=== PATIENT | male | born 1940 | race Caucasian/White ===

== ENCOUNTER 2020-12-09 08:29 | Inpatient (IN) | payer MEDICARE, BC ==
[2020-12-16] VITALS (10 sets, daily range): BP systolic 103–132; BP diastolic 53–68; PULSE 45–79; TEMP 97.7–979
[2020-12-16] MEDS ORDERED: COUMADIN 6MG6 MG/TAB PO ×2 (11:32)
[2020-12-16] MEDS ORDERED: BETAPACE 120MG120 MG PO (11:32)
[2020-12-16] MEDS ORDERED: NORVASC 10MG10 MG PO (11:33)
[2020-12-16] MEDS ORDERED: LIPITOR 10MG10 MG PO (11:34)
[2020-12-16] MEDS ORDERED: BENICAR40 MG PO (11:34)
--- NOTE | 2020-12-16 19:13 | NUR ---
Patient post op to unit at 1845. On initial VS, oximeter 88%RA. Oxygen 2l/nc applied, O2 increased to 98%. Lungs CTA. Respers even and unlabored. Abdomen soft, tender. Lap sites x4 with edges well approximated. Low transverse incision with island dressing, shadow drainage noted. Cruz catheter in place, patent, draining clear yellow urine. ERAS protocol reviewed with spouse. No c/o at this time.
--- NOTE | 2020-12-16 20:05 | NUR ---
PT HAD SMALL AMT OF EMESIS, ZOFRAN 4MG GIVEN SLOW IVP
[2020-12-17 04:09] VITALS: BP 134/73; PULSE 69; TEMP 97.9
--- NOTE | 2020-12-17 07:00 | NUR ---
Report received from MELISSA Spear. Patient is resting in bed. Call light and bedside table are within reach. Will continue to monitor patient throughout shift.
[2020-12-17 07:11] VITALS: BP 129/52; PULSE 69; TEMP 97.5
[2020-12-17 07:11] LABS: HEMOGLOBIN 10.9 g/dl (13.5-18.0); MEAN CELL VOLUME 82 fl (80.0-100.0); MEAN CORPUSCULAR HEMOGLOBIN 26 pg (27.0-31.0); MEAN CORPUSCULAR HGB CONC 32 g/dl (33.0-37.0); MEAN PLATELET VOLUME 11.9 fl (7.4-10.4); PLATELET COUNT 174 K/mm3 (130-400); RED BLOOD COUNT 4.17 M/mm3 (4.20-5.60); REDCELL DISTRIBUTION WIDTH-CV 13.1 % (11.5-14.5)
[2020-12-17 07:15] LABS: HEMATOCRIT 34.2 % (42.0-52.0)
[2020-12-17 07:27] LABS: CALCIUM 9.1 mg/dL (8.4-10.2); CREATININE, serum 0.87 mg/dL (0.72-1.25); POTASSIUM 4.5 mmol/L (3.5-4.5)
[2020-12-17 07:48] LABS: LYMPHOCYTE 3 % (20.0-51.0); NEUTROPHILS 96 % (42.0-75.2)
[2020-12-17 07:50] LABS: HYPOCHROMIA 2+; PLATELET ESTIMATE NORMAL (NORMAL)
--- NOTE | 2020-12-17 08:45 | NUR ---
Patient refused to take Cozaar/Hydrodiuril this a.m. Patient stated he takes this medication at night. This nurse assured him provider is aware of his medications and how they are being taken he still refused. This nurse told him she would contact the provider and request the medication be changed from a.m. to pm.
--- NOTE | 2020-12-17 10:10 | NUR ---
This nurse removed patient's Cruz and patient tolerated it well. Patient, his , and myself walked in the corridor. Patient walked approximately 300 feet. Patient denied dizziness and lightheadedness. Patient stated he had very little pain while walking. Patient is currently in recliner. Call light and bedside table are within reach.
[2020-12-17 11:22] VITALS: BP 128/62; PULSE 66; TEMP 97.6
--- NOTE | 2020-12-17 13:29 | NUR ---
This nurse contacted Dr. Moreau to get a medication change for the patient. Message went to [facility]. Patient is requesting to have one of his medication (Cozaar/Hydrodiuril changed from the a.m. to p.m. Patient is adamant about the change and refused to take the medication this a.m.
--- NOTE | 2020-12-17 14:16 | NUR ---
Plan is to return home with Philip in [employer]. Patient reports that his PCP is Dr. Modi and Dr. Barajas. Patient reports that he uses [facility] for medications but does not have any concerns. Patient indicated that he is recieving good care. Patient rpeorts that he has transportation and is fairly independent. Educated on services through case management. No DME reported in use. Will follow for care.
[2020-12-17 15:13] VITALS: BP 135/65; PULSE 58; TEMP 97.6
[2020-12-17 20:44] VITALS: BP 129/61; PULSE 52; TEMP 97.9
--- NOTE | 2020-12-17 21:30 | NUR ---
PT IN BED. IVF CAPPED, HAS GOOD ORAL INTAKE. SL TO RT HAND FLUSHES WELL. IS ALERT AND ORIENTED X4. TAKES HS MEDS WITHOUT PROBLEM. HAS BANDAIDS X4 TO ABD AND LOW TRANSVERSE INCISION WITH DRY ISLAND DRSG INTACT. VOIDING WITHOUT PROBLEM SINCE GARCIA REMOVED TODAY. PASSING GAS. WALKING IN HALLWAYS WITH . DENIES NEED FOR PAIN MEDS AT THIS TIME.
[2020-12-18 00:58] VITALS: BP 113/57; PULSE 53; TEMP 97.7
[2020-12-18 04:04] VITALS: BP 136/54; PULSE 50; TEMP 97.5
--- NOTE | 2020-12-18 06:45 | NUR ---
TAKES SCHEDULED TYLENOL. REPORTS HAVING STOOLS AND VOIDING WELL.
--- NOTE | 2020-12-18 07:00 | NUR ---
Report received from MELISSA Heart. Patient is resting in bed. Call light and bedside table are within reach. Will continue to monitor patient throughout shift.
[2020-12-18 08:05] VITALS: BP 133/65; PULSE 53; TEMP 97.7
[2020-12-18] MEDS ORDERED: TYLENOL 500MG500 MG PO (11:11)
[2020-12-18] MEDS ORDERED: ROXICODONE 55 MG/TAB PO (11:13)
--- NOTE | 2020-12-18 12:49 | NUR ---
Patient is at bedside and has packed patient's personal belongings to include cell phone and chain mender. Paperwork has been reviewed, signed and patient denies questions at this time. Patient was escorted by MELISSA Olivarez to car in a and seatbelted for ride home.
== END 2020-12-18 12:40 | disposition home or self-care (01) | DRG 822 ==
LOC: INPTSU 12-16 11:01 → SURG 12-16 13:30
PROVIDERS: ADMIT Surgery
PROC: 0DB80ZZ Excision of Small Intestine, Open Approach (ICD-10-PCS; principal; 2020-12-17)
PROC: 8E0W0CZ Robotic Assisted Procedure of Trunk Region, Open Approach (ICD-10-PCS; 2020-12-17)
DX: C82.59 Diffuse follicle center lymphoma, extranodal and solid organ sites (principal); E66.9 Obesity, unspecified; E78.5 Hyperlipidemia, unspecified; I48.91 Unspecified atrial fibrillation; M19.90 Unspecified osteoarthritis, unspecified site; I10 Essential (primary) hypertension; E11.9 Type 2 diabetes mellitus without complications
CPT/HCPCS: A4314; J0690; J1100; J1170; J1650; J1815; J2250; J2405; J2704; J2795; J3010; J7120

== ENCOUNTER 2021-06-13 09:18 | Outpatient (RCR) | payer MEDICARE, BC, OTHER ==
[2021-06-13] VITALS (9 sets, daily range): BP systolic 100–121; BP diastolic 57–69; PULSE 61–88; TEMP 97.9–99.4
[~2021-06-13 09:18] MED LIST: BENICAR40 MG PO; BETAPACE 120MG120 MG PO; COUMADIN 6MG6 MG/TAB PO; LIPITOR 10MG10 MG PO; NORVASC 10MG10 MG PO; ROXICODONE 55 MG/TAB PO; TYLENOL 500MG500 MG PO
[2021-06-13] MEDS ORDERED: TRADJENTA5 MG PO (11:59)
[2021-06-13] MEDS ORDERED: TRULICITY3 MG/0.5 M SQ (12:00)
[2021-06-13] MEDS ORDERED: ISONIAZID300 MG PO (12:01)
[2021-06-13] MEDS ORDERED: AMARYL4 MG PO (12:02)
== END 2021-06-13 20:06 | disposition home or self-care (01) ==
LOC: EUO 09:18
DX: C83.39 Diffuse large B-cell lymphoma, extranodal and solid organ sites (principal); D64.9 Anemia, unspecified
CPT/HCPCS: J7050; P9016

== ENCOUNTER 2021-07-06 11:33 | Inpatient (IN) | payer MEDICARE, BC ==
[~2021-07-06] VITALS: Ht 182.9 cm; Wt 92.2 kg
[2021-07-06] VITALS (455 sets, daily range): BP systolic 98–107; BP diastolic 61–71; PULSE 65–109; TEMP 96.2–98.3; O2SAT 90–100
[~2021-07-06 11:33] MED LIST changes: +AMARYL4 MG PO; +ISONIAZID300 MG PO; +TRADJENTA5 MG PO; +TRULICITY3 MG/0.5 M SQ
[2021-07-06 12:16] LABS: MEAN CELL VOLUME 87 fl (80.0-100.0); MEAN CORPUSCULAR HGB CONC 32 g/dl (33.0-37.0); MEAN PLATELET VOLUME 11.3 fl (7.4-10.4); PLATELET COUNT 228 K/mm3 (130-400); RED BLOOD COUNT 3.13 M/mm3 (4.20-5.60); REDCELL DISTRIBUTION WIDTH-CV 16.7 % (11.5-14.5)
[2021-07-06 12:28] LABS: HEMATOCRIT 27.2 % (42.0-52.0); HEMOGLOBIN 8.6 g/dl (13.5-18.0); MEAN CORPUSCULAR HEMOGLOBIN 27 pg (27-31)
[2021-07-06 12:32] LABS: ALBUMIN 2.4 gm/dL (3.4-4.8); BILIRUBIN,TOTAL 1.1 mg/dL (0.2-1.2); CALCIUM 8.4 mg/dL (8.4-10.2); CREATININE, serum 1.11 mg/dL (0.72-1.25); POTASSIUM 4.6 mmol/L (3.5-4.5); TOTAL PROTEIN 5.6 gm/dL (6.2-8.1)
[2021-07-06 13:08] LABS: ANISOCYTOSIS 1+; BAND 4 % (0-10); HYPOCHROMIA 2+; LYMPHOCYTE 3 % (20.0-51.0); NEUTROPHILS 86 % (42.0-75.2); PLATELET ESTIMATE NORMAL (NORMAL)
--- NOTE | 2021-07-06 13:09 | NUR ---
1113 - PT arrived by wheelchair to [facility] for blood transfusion. pt with dusky skin color and increased resp rate and work of breathing. states pt has been more sob over past few days, but the increased wob and inability to recover started last night. VS were measured. bp 95/81, hr 159, rr 40, o2sat 72% on room air, oral temp of 97.6. I called Jayda TORRES at [facility] to report pt's condition to Dr. Schwartz, and to report that pt would be transferred to ER for care. Pt to rm 8 via wheelchair after reporting to Sharon TORRES in ER. Pt accompanied by .
[2021-07-06 14:20] LABS: INR 1.8 (0.8-3.0); PROTHROMBIN TIME 19.8 SECONDS (9.7-12.8)
[2021-07-06 14:27] LABS: ARTERIAL BLD GAS TCO2 CT 16.7; ARTERIAL BLOOD GAS BASE EXCESS -7.5 (-2-2); ARTERIAL BLOOD GAS HCO3 15.9 meq/L (22-26); ARTERIAL BLOOD GAS PCO2 24.4 mmHg (35-45); ARTERIAL BLOOD GAS PO2 67.5 mmHg (80-100); ARTERIAL BLOOD GAS pH 7.43 (7.35-7.45)
--- NOTE | 2021-07-06 15:00 | NUR ---
Initial visit; Patient in ICU, Braider Setter sat with his Yobani offering comnfort and Spiritual Care.
[2021-07-06 16:38] LABS: ARTERIAL BLD GAS O2 SATURATION 93.7 % (92-100); ARTERIAL BLD GAS TCO2 CT 17.6; ARTERIAL BLOOD GAS BASE EXCESS -7.3 (-2-2); ARTERIAL BLOOD GAS HCO3 16.7 meq/L (22-26); ARTERIAL BLOOD GAS PCO2 28.1 mmHg (35-45); ARTERIAL BLOOD GAS PO2 75.3 mmHg (80-100); ARTERIAL BLOOD GAS pH 7.39 (7.35-7.45)
--- NOTE | 2021-07-06 17:36 | NUR ---
Sedation vacation not performed as patient was just intubated and sedated this afternoon.
--- NOTE | 2021-07-06 19:16 | NUR ---
PT WAS INTUBATED WITH AN 8.0 ET WITH COLOR CHANGE, BILATERAL BREATH SOUNDS, CHEST RISE AND CONDENSATION IN THE TUBE. TUBE WAS SECURED WITH COMMERCIAL TUBE CAMPOS AT 25 AT THE LIP. CUFF INFLATED.
--- NOTE | 2021-07-06 19:51 | NUR ---
RN AND FAMILY X 1 AT BEDSIDE. SPUTUM SAMPLE AND ABG COLLECTED AND SENT TO LAB.
--- NOTE | 2021-07-06 19:54 | NUR ---
PATIENT'S BELONGINGS SENT HOME WITH , THRES, INCLUDING WALLET, WATCH, AND HOUSE LEWIS. PATIENT'S PANTS, SHOES, UNDERWEAR AND SOCKS ARE IN THE PATIENT'S ROOM.
[2021-07-06 20:15] LABS: ARTERIAL BLD GAS O2 SATURATION 97.4 % (92-100); ARTERIAL BLD GAS TCO2 CT 20.7; ARTERIAL BLOOD GAS BASE EXCESS -5.3 (-2-2); ARTERIAL BLOOD GAS HCO3 19.6 meq/L (22-26); ARTERIAL BLOOD GAS PCO2 35.2 mmHg (35-45); ARTERIAL BLOOD GAS PO2 104.4 mmHg (80-100); ARTERIAL BLOOD GAS pH 7.36 (7.35-7.45)
[2021-07-06 20:36] LABS: COLLECTION METHOD CLEAN CATCH
[2021-07-06 20:47] LABS: MUCOUS Present (NOT PRESENT); PH 5 (5-8); SQUAMOUS EPITHELIAL 0-2 /hpf (0-10); URINE APPEARANCE Hazy (CLEAR/HAZY); URINE BACTERIA Rare /hpf (NONE SEEN); URINE BILIRUBIN Negative (NEGATIVE); URINE BLOOD 3+ (NEGATIVE); URINE COLOR Yellow (YELLOW); URINE GLUCOSE 1+ (NEGATIVE); URINE KETONE Negative (NEGATIVE); URINE LEUKOCYTE ESTERASE Negative (NEGATIVE); URINE NITRATE Negative (NEGATIVE); URINE PROTEIN(semi-quant) Negative (NEGATIVE); URINE RBC 20-50 /hpf (0-2); URINE UROBILINOGEN Negative (NEGATIVE)
--- NOTE | 2021-07-06 21:13 | NUR ---
Assessment complete and charted. Patient pupils are pinpoint at this time. Sedation was decreased to aide with neuro status. Will preform sedation vacation at 0500. Patient started on insulin gtt per additional nursing orders from Dr. Rivas. remained at beside til 1999.
[2021-07-07] VITALS (1375 sets, daily range): BP systolic 79–121; BP diastolic 51–73; PULSE 62–92; TEMP 95.4–97.9; O2SAT 87–100
--- NOTE | 2021-07-07 01:51 | NUR ---
RN STATED ORAL CARE WAS ALREADY DONE AT 0100. TX GIVEN INLINE WITH VENT AND TOLERATED WELL.
[2021-07-07 04:30] LABS: ARTERIAL BLOOD GAS BASE EXCESS -5.4 (-2-2); ARTERIAL BLOOD GAS HCO3 19.8 meq/L (22-26); ARTERIAL BLOOD GAS PCO2 37.7 mmHg (35-45); ARTERIAL BLOOD GAS PO2 91.2 mmHg (80-100); ARTERIAL BLOOD GAS pH 7.34 (7.35-7.45)
[2021-07-07 04:37] LABS: MEAN CELL VOLUME 87 fl (80.0-100.0); MEAN CORPUSCULAR HGB CONC 33 g/dl (33.0-37.0); MEAN PLATELET VOLUME 11.4 fl (7.4-10.4); PLATELET COUNT 200 K/mm3 (130-400); RED BLOOD COUNT 2.47 M/mm3 (4.20-5.60); REDCELL DISTRIBUTION WIDTH-CV 16.3 % (11.5-14.5)
[2021-07-07 04:45] LABS: CALCIUM 8.1 mg/dL (8.4-10.2); CREATININE, serum 0.82 mg/dL (0.72-1.25); MAGNESIUM 1.9 mg/dL (1.6-2.6); POTASSIUM 3.9 mmol/L (3.5-4.5)
[2021-07-07 04:48] LABS: HEMATOCRIT 21.5 % (42.0-52.0); MEAN CORPUSCULAR HEMOGLOBIN 28 pg (27-31)
[2021-07-07 05:07] LABS: INR 2.7 (0.8-3.0); PROTHROMBIN TIME 30.2 SECONDS (9.7-12.8)
[2021-07-07 05:39] LABS: BAND 4 % (0-10); LYMPHOCYTE 1 % (20.0-51.0); MYELOCYTE 1 % (0-0); NEUTROPHILS 93 % (42.0-75.2); PLATELET ESTIMATE NORMAL (NORMAL)
[2021-07-07 05:40] LABS: ANISOCYTOSIS 1+; HYPOCHROMIA 1+
--- NOTE | 2021-07-07 06:36 | NUR ---
Patient had warming blanket on since 509 per Carine CURRICULUM DIRECTOR. Patient temps remains 35 degrees with blanket.
--- NOTE | 2021-07-07 07:00 | NUR ---
Received report from Margarita TORRES. vent settings: AC, TV 500, PEEP 8, RR 20, 50%. ETT 25 at teeth. OGT 51 cm to LIS. FC patent draining to gravity. WEBSPHERE ARCHITECT in place. see gtt flowsheet.
--- NOTE | 2021-07-07 07:09 | NUR ---
Report given to MELISSA Hyatt
--- NOTE | 2021-07-07 10:48 | NUR ---
The patient is intubated and on the vent. BRANDIE met with the patient's , Ozzy Rebolledo", to discuss discharge plan. The patient lives in [place] with his . Avery states that the patient was independent with ADLs prior to hospitalization and does not have any DME. The patient's PCP is Dr. Kevin Modi and he receives his medications from [facility]. Avery states that the patient does not have a DPOA-HC. Avery is hopeful that the patient will be independent and able to go home from the hospital. She states that he has been on chemo infusions and his last dose was suppose to be next Saturday. The patient remains on the vent. BRANDIE to continue to follow. *Discharge plan: Undetermined at this time*
[2021-07-07 10:59] LABS: ARTERIAL BLD GAS O2 SATURATION 97.9 % (92-100); ARTERIAL BLD GAS TCO2 CT 20.4; ARTERIAL BLOOD GAS BASE EXCESS -4.3 (-2-2); ARTERIAL BLOOD GAS HCO3 19.5 meq/L (22-26); ARTERIAL BLOOD GAS PCO2 29.6 mmHg (35-45); ARTERIAL BLOOD GAS PO2 101.8 mmHg (80-100); ARTERIAL BLOOD GAS pH 7.44 (7.35-7.45)
--- NOTE | 2021-07-07 15:14 | NUR ---
TF INITIATED AT 15ML/HR PER ORDERS.
--- NOTE | 2021-07-07 17:08 | NUR ---
PT OPENS EYES WHEN HE HEARS HIS SPEAKING TO HIM. NOTED PT TO PULL AGAINST BILATERAL RESTRAINTS AND MOVE BLE. VSS.
[2021-07-08] VITALS (1048 sets, daily range): BP systolic 87–117; BP diastolic 59–89; PULSE 80–110; TEMP 97.6–98.6; O2SAT 85–100
--- NOTE | 2021-07-08 02:00 | NUR ---
HEPARIN XA RESULT OF 0.45 PER PROTOCOL NO CHANGE TO DRIP RATE, NEXT XA LEVEL IN 6 HOURS
[2021-07-08 04:44] LABS: ARTERIAL BLD GAS TCO2 CT 21.3; ARTERIAL BLOOD GAS BASE EXCESS -3.2 (-2-2); ARTERIAL BLOOD GAS HCO3 20.3 meq/L (22-26); ARTERIAL BLOOD GAS PCO2 30.6 mmHg (35-45); ARTERIAL BLOOD GAS PO2 110.1 mmHg (80-100); ARTERIAL BLOOD GAS pH 7.44 (7.35-7.45)
--- NOTE | 2021-07-08 05:00 | NUR ---
PATIENT ABLE TO FOLLOW COMMANDS AND RESPOND TO VERBAL STIMULI, EXPLAINED PROCESS OF REDUCING SEDATING MEDICATIONS WITH GOAL TO BE ABLE TO REMOVE ETT.
[2021-07-08 05:57] LABS: MEAN CELL VOLUME 88 fl (80.0-100.0); MEAN CORPUSCULAR HGB CONC 31 g/dl (33.0-37.0); MEAN PLATELET VOLUME 10.9 fl (7.4-10.4); PLATELET COUNT 174 K/mm3 (130-400); RED BLOOD COUNT 2.78 M/mm3 (4.20-5.60); REDCELL DISTRIBUTION WIDTH-CV 16.6 % (11.5-14.5)
[2021-07-08 06:13] LABS: CALCIUM 8.4 mg/dL (8.4-10.2); CREATININE, serum 1.16 mg/dL (0.72-1.25); MAGNESIUM 2.2 mg/dL (1.6-2.6); POTASSIUM 4.3 mmol/L (3.5-4.5)
[2021-07-08 06:17] LABS: HEMATOCRIT 24.5 % (42.0-52.0); HEMOGLOBIN 7.7 g/dl (13.5-18.0); MEAN CORPUSCULAR HEMOGLOBIN 28 pg (27-31)
--- NOTE | 2021-07-08 07:00 | NUR ---
RECEIVED REPORT FROM MELISSA MEJÍA. PT RESTING ON SPONTANEOUS TRIAL ON VENT OF 30% PEEP, 7, PS 6. VSS. CONFERENCE SERVICES DIRECTOR IN PLACE. FC PATENT AND DRAINING TO GRAVITY. SEE IV GTT FLOWSHEET.
[2021-07-08 07:33] LABS: ANISOCYTOSIS 1+; BAND 8 % (0-10); HYPOCHROMIA 1+; LYMPHOCYTE 3 % (20.0-51.0); NEUTROPHILS 87 % (42.0-75.2); PLATELET ESTIMATE NORMAL (NORMAL)
[2021-07-08 07:35] LABS: TEAR DROP CELLS 1+
--- NOTE | 2021-07-08 08:06 | NUR ---
DR MONIQUE AT BEDSIDE FOR ASSESSMENT. PROVIDER REQUESTS TO CUT PROPOFOL IN HALF NOW THEN TURN OFF FENT AND PROPOFOL IV GTTs ABOUT 20 MINS BEFORE WE DECIDE TO EXTUBATE THIS MORNING AND BE SURE THAT PT IS FULLY AWAKE BEFORE EXTUBATING. RT MADE AWARE AND WILL MAKE A PLAN WITH RN. PT'S AT BEDSIDE AND MADE AWARE OF POC BY DR MONIQUE, VERBALIZED UNDERSTANDING.
--- NOTE | 2021-07-08 08:46 | NUR ---
PT AROUSING EASILY AT THIS TIME AND PULLING AT THE BEARHUGGER. PT NODS HEAD YES WHEN ASKED IF HE IS TOO HOT. BEAR HUGGER OFF AT THIS TIME.
--- NOTE | 2021-07-08 12:18 | NUR ---
PT EXTUBATED AT THIS TIME. TOLERATED WELL. OGT OUT AT THIS TIME WELL. PT PLACED ON 2L VIA NC. WILL MONITOR CLOSELY.
--- NOTE | 2021-07-08 12:26 | NUR ---
PT EXTUBATED TO 2 LPM NC @ 1218 W/O INCIDENT. PT RESTING QUIETLY IN BED WITH AT BEDSIDE.
[2021-07-09] VITALS (1057 sets, daily range): BP systolic 96–133; BP diastolic 63–80; PULSE 82–125; TEMP 97.5–98.8; O2SAT 77–100
[2021-07-09 04:19] LABS: MEAN CELL VOLUME 89 fl (80.0-100.0); MEAN CORPUSCULAR HGB CONC 31 g/dl (33.0-37.0); MEAN PLATELET VOLUME 11.2 fl (7.4-10.4); PLATELET COUNT 95 K/mm3 (130-400); RED BLOOD COUNT 2.36 M/mm3 (4.20-5.60); REDCELL DISTRIBUTION WIDTH-CV 16.2 % (11.5-14.5)
[2021-07-09 04:27] LABS: HEMOGLOBIN 6.6 g/dl (13.5-18.0); MEAN CORPUSCULAR HEMOGLOBIN 28 pg (27-31)
[2021-07-09 04:38] LABS: CALCIUM 8.1 mg/dL (8.4-10.2); CREATININE, serum 0.92 mg/dL (0.72-1.25); PHOSPHOROUS 4.4 mg/dL (2.3-4.7); POTASSIUM 4.2 mmol/L (3.5-4.5)
[2021-07-09 04:47] LABS: BAND 1 % (0-10); HYPOCHROMIA 2+; LYMPHOCYTE 2 % (20.0-51.0); METAMYELOCYTE 1 % (0-0); MYELOCYTE 2 % (0-0); NEUTROPHILS 91 % (42.0-75.2); NUCLEATED RED BLOOD CELL 1 (0-6)
[2021-07-09 04:48] LABS: ANISOCYTOSIS 1+; TEAR DROP CELLS 2+
--- NOTE | 2021-07-09 05:26 | NUR ---
ASSUMED CARE OF PATIENT AFTER RECEIVING BEDSIDE REPORT. ASSESSMENT COMPLETED, VSS. PATIENT IRRITABLE STATING HE IS TIRED AND WANTS TO SLEEP UNDISTURBED. RN ASSURED HIM THAT CARES WILL BE COMBINED TO REDUCE INTERRUPTIONS IN SLEEP, ORDER FOR MELATONIN RECEIVED FROM LUCRECIA DAS. PATIENT DENIES OTHER CONCERNS, QUESTIONS, OR PAIN. PATIENT RECEIVED 1 UNIT PRBC, REPEAT LABS SHOWED A CRITICAL HEMOGLOBIN, VALUE REPORTED TO PIPPA SINGER, ORDER RECEIVED FOR 1 UNIT PRBC. WILL INFUSE ONCE RECEIVED. NO ACUTE EVENTS OVERNIGHT. BEDSIDE REPORT TO BE GIVEN TO ONCOMING SHIFT.
--- NOTE | 2021-07-09 08:30 | NUR ---
Patient resting in bed; arouses easily and alert and oriented when awake, however falls back asleep when not beign directly addressed. VS stable ; Call light left within reach.
[2021-07-09 15:29] LABS: HEMOGLOBIN 8.4 g/dl (13.5-18.0)
--- NOTE | 2021-07-09 16:00 | NUR ---
Alert and oriented and resting in bed; denies offer for repositioning.
--- NOTE | 2021-07-09 17:00 | NUR ---
Discused plan of care with Dr. Serrano. Will Dc Vancomycin and Levaquin per his orders.
--- NOTE | 2021-07-09 18:34 | NUR ---
Blood glucose levels running high despite minimal food intake and high SSI. Discussed with hospitalist and will review to see if changes are necessary.
[2021-07-10] VITALS (1358 sets, daily range): BP systolic 122–146; BP diastolic 71–90; PULSE 84–100; TEMP 37.8; O2SAT 68–100
[2021-07-10 04:40] LABS: MEAN CELL VOLUME 89 fl (80.0-100.0); MEAN CORPUSCULAR HGB CONC 31 g/dl (33.0-37.0); PLATELET COUNT 96 K/mm3 (130-400); RED BLOOD COUNT 2.94 M/mm3 (4.20-5.60); REDCELL DISTRIBUTION WIDTH-CV 16.1 % (11.5-14.5)
[2021-07-10 04:56] LABS: ALBUMIN 1.9 gm/dL (3.4-4.8); BILIRUBIN,TOTAL 0.5 mg/dL (0.2-1.2); CREATININE, serum 0.83 mg/dL (0.72-1.25); MAGNESIUM 1.8 mg/dL (1.6-2.6); PHOSPHOROUS 3.6 mg/dL (2.3-4.7); POTASSIUM 3.5 mmol/L (3.5-4.5); TOTAL PROTEIN 4.5 gm/dL (6.2-8.1)
[2021-07-10 05:02] LABS: HEMATOCRIT 26.1 % (42.0-52.0); HEMOGLOBIN 8.2 g/dl (13.5-18.0); MEAN CORPUSCULAR HEMOGLOBIN 28 pg (27-31)
[2021-07-10 05:16] LABS: ANISOCYTOSIS 1+; BAND 20 % (0-10); HYPOCHROMIA 2+; LYMPHOCYTE 2 % (20.0-51.0); METAMYELOCYTE 4 % (0-0); NEUTROPHILS 72 % (42.0-75.2); PLATELET ESTIMATE DECREASED (NORMAL)
[2021-07-10 05:17] LABS: TEAR DROP CELLS 1+
--- NOTE | 2021-07-10 06:07 | NUR ---
ASSUMED CARE OF PATIENT AFTER RECEIVING BEDSIDE REPORT. ASSESSMENT COMPLETED, VSS. PATIENT NOTED TO BE MORE CONFUSED THAN PREVIOUS NIGHT. BLOOD SUGAR 300, CONTACTED PIPPA SINGER, ORDER RECEIVED FOR INSULIN DRIP. PATIENT STATES UNDERSTANDING BUT NEEDS FREQUENT REORIENTATION. PTT THERAPEUTIC, NEXT DRAW THIS AM. DOSE ADJUSTMENT NEEDED, REPEAT ORDERED FOR 2 HOURS. POTASSIUM REPLACED PER PROTOCOL. NO ACUTE EVENTS OVERNIGHT. BEDSIDE REPORT TO BE GIVEN TO ONCOMING SHIFT.
--- NOTE | 2021-07-10 10:08 | NUR ---
Initial visit; Patient awake. Junk Dealer let him know she had spent time with his and continues to keep him in her prayers and wishes him well today.
--- NOTE | 2021-07-10 10:31 | NUR ---
The patient has been extubated. PT/OT have been ordered. SW to continue to monitor.
--- NOTE | 2021-07-10 12:04 | NUR ---
0730 PTT 63.5 DRIP DECREASED BY 20% [id number]- LEVEL AT GOAL NO CHANGE 1130 PTT 58.0 - LEVEL AT GOAL NO CHANGE NEXT CHECK IN AM PER DRIP PROTOCOL
--- NOTE | 2021-07-10 19:10 | NUR ---
Report given to MELISSA Garcia.
[2021-07-11] VITALS (1439 sets, daily range): BP systolic 120–145; BP diastolic 71–91; PULSE 96–116; TEMP 37.1–37.3; O2SAT 77–99
[2021-07-11 05:39] LABS: MEAN CELL VOLUME 90 fl (80.0-100.0); MEAN CORPUSCULAR HGB CONC 31 g/dl (33.0-37.0); MEAN PLATELET VOLUME 11.7 fl (7.4-10.4); PLATELET COUNT 88 K/mm3 (130-400); RED BLOOD COUNT 2.72 M/mm3 (4.20-5.60); REDCELL DISTRIBUTION WIDTH-CV 17.5 % (11.5-14.5)
[2021-07-11 05:45] LABS: HEMATOCRIT 24.5 % (42.0-52.0); HEMOGLOBIN 7.7 g/dl (13.5-18.0); MEAN CORPUSCULAR HEMOGLOBIN 28 pg (27-31)
[2021-07-11 05:59] LABS: CALCIUM 8.4 mg/dL (8.4-10.2); CREATININE, serum 0.95 mg/dL (0.72-1.25); MAGNESIUM 1.8 mg/dL (1.6-2.6); POTASSIUM 3.5 mmol/L (3.5-4.5)
[2021-07-11 06:28] LABS: BAND 18 % (0-10); LYMPHOCYTE 2 % (20.0-51.0); METAMYELOCYTE 4 % (0-0); NEUTROPHILS 70 % (42.0-75.2); NUCLEATED RED BLOOD CELL 1 (0-6)
[2021-07-11 06:29] LABS: ANISOCYTOSIS 1+; PLATELET ESTIMATE NORMAL (NORMAL)
[2021-07-11 06:30] LABS: TEAR DROP CELLS 1+
[2021-07-12] VITALS (1314 sets, daily range): BP systolic 124–153; BP diastolic 70–90; PULSE 72–105; TEMP 37.2; O2SAT 81–100
[2021-07-12 05:28] LABS: MEAN CELL VOLUME 89 fl (80.0-100.0); MEAN CORPUSCULAR HGB CONC 32 g/dl (33.0-37.0); MEAN PLATELET VOLUME 11.6 fl (7.4-10.4); PLATELET COUNT 85 K/mm3 (130-400); RED BLOOD COUNT 2.97 M/mm3 (4.20-5.60); REDCELL DISTRIBUTION WIDTH-CV 17.8 % (11.5-14.5)
[2021-07-12 05:31] LABS: HEMATOCRIT 26.5 % (42.0-52.0); HEMOGLOBIN 8.5 g/dl (13.5-18.0); MEAN CORPUSCULAR HEMOGLOBIN 29 pg (27-31)
[2021-07-12 05:42] LABS: ALBUMIN 3.3 gm/dL (3.4-4.8); BILIRUBIN,TOTAL 1.8 mg/dL (0.2-1.2); C-REACTIVE PROTEIN 9.14 mg/dL (0.00-0.50); CALCIUM 8.5 mg/dL (8.4-10.2); CREATININE, serum 0.87 mg/dL (0.72-1.25); POTASSIUM 3.1 mmol/L (3.5-4.5); TOTAL PROTEIN 5.1 gm/dL (6.2-8.1)
[2021-07-12 05:49] LABS: LYMPHOCYTE 3 % (20.0-51.0); METAMYELOCYTE 1 % (0-0); MYELOCYTE 2 % (0-0); NEUTROPHILS 93 % (42.0-75.2)
[2021-07-12 05:50] LABS: OVALOCYTES 1+; POLYCHROMASIA 1+; SCHISTOCYTES 1+; TEAR DROP CELLS 1+
[2021-07-12 06:11] LABS: MAGNESIUM 1.7 mg/dL (1.6-2.6)
--- NOTE | 2021-07-12 07:00 | NUR ---
BEDSIDE REPORT RECEIVED FROM MELISSA MAO. PT SLEEPING AT THIS TIME; DOES NOT PARTICIPATE IN REPORT. LEFT CHEST PORT A CATH IN PLACE WITH DRESSING COVERING. HERMES PICC IN PLACE. PT WEARS 6L NC. FC TO DEPENDENT DRAINAGE. SCD'S IN PLACE.
--- NOTE | 2021-07-12 10:04 | NUR ---
Attended rounds with Dr. Cabrera. He told me I don't need to worry about the consult but I did introduce myself to the patient and his . I offered to answer any questions that arise and am here as a resource for them. Notified primary nurse that I will follow along and be available if need be.
--- NOTE | 2021-07-12 12:19 | NUR ---
needleworker collaborated with Dr Cabrera, and per patient and spouse wishes, a referral was made to Isaiah at [facility] for aggressive continued care. Worker contacted Isaiah and faxed clinical information.
--- NOTE | 2021-07-12 15:22 | NUR ---
Isaiah with [facility] states patient is accepted and they plan an opening in their [place] location tomorrow. lay out worker met with patient and spouse to answer questions about [facility]. Worker arranged for Isaiah to call Philip at [phone]. Worker notified Dr Cabrera of the above information.
--- NOTE | 2021-07-12 20:04 | NUR ---
TX GIVEN VIA MASK, TOLERATED WELL. PT FOUND ON 5L NC AND SPO2=99%, DECREASED TO 3L AT THIS TIME.
--- NOTE | 2021-07-12 21:00 | NUR ---
PT SITTING UP IN BED, RECENTLY FINISHED BREATHING TREATMENT. LUNG SOUNDS CLEAR WITH GOOD AIR MOVEMENT. PT STATES FEELS BETTER THAN HAS IN MONTHS. SPEAKING QUITE A BIT ABOUT WANTING TO STAY TO FINISH RECOVERY HER AT [facility] THAN GO TO [facility]. ENCOURAGED PT TO DISCUSS WITH DOCTORS IN AM ABOUT CONTINUED POC. DISCUSSED ANTIBIOTIC TREATMENT WITH PT AND MONITORING. REPORTS NO NEEDS AT THIS TIME. WILL CONTINUE TO MONITOR.
[2021-07-13] VITALS (589 sets, daily range): BP systolic 122–139; BP diastolic 71–82; PULSE 97–106; TEMP 98.2–98.4; O2SAT 83–100
--- NOTE | 2021-07-13 03:26 | NUR ---
PT ASSISTED INTO CHAIR, ONE PERSON ASSIST, TO WASH UP. PT REPORTS FEELING WEAKER THAN HE EXPECTED, ALTHOUGH ADMITS HE WAS NOT DOING MUCH ACTIVITY PRIOR TO ADMISSION DUE TO CHEMOTHERAPY RESIDUAL EFFECTS. PT ASSISTED TO WASH BODY, CHANGE INTO NEW GOWN AND BED LINENS CHANGED. TOLERATED WELL, NOW BACK TO BED. WILL CONTINUE TO MONITOR.
[2021-07-13 06:02] LABS: MEAN CELL VOLUME 89 fl (80.0-100.0); MEAN CORPUSCULAR HGB CONC 32 g/dl (33.0-37.0); MEAN PLATELET VOLUME 12.5 fl (7.4-10.4); PLATELET COUNT 81 K/mm3 (130-400); RED BLOOD COUNT 2.92 M/mm3 (4.20-5.60); REDCELL DISTRIBUTION WIDTH-CV 17.3 % (11.5-14.5)
[2021-07-13 06:12] LABS: HEMOGLOBIN 8.2 g/dl (13.5-18.0); MEAN CORPUSCULAR HEMOGLOBIN 28 pg (27-31)
[2021-07-13 06:20] LABS: ALBUMIN 2.8 gm/dL (3.4-4.8); BILIRUBIN,TOTAL 1.3 mg/dL (0.2-1.2); CALCIUM 8.5 mg/dL (8.4-10.2); CREATININE, serum 0.79 mg/dL (0.72-1.25); POTASSIUM 3.1 mmol/L (3.5-4.5); TOTAL PROTEIN 4.8 gm/dL (6.2-8.1)
[2021-07-13 06:53] LABS: BAND 7 % (0-10); LYMPHOCYTE 1 % (20.0-51.0); MYELOCYTE 2 % (0-0); NEUTROPHILS 87 % (42.0-75.2); PLATELET ESTIMATE DECREASED (NORMAL)
[2021-07-13 06:54] LABS: ANISOCYTOSIS 1+; HYPOCHROMIA 1+
--- NOTE | 2021-07-13 07:45 | NUR ---
Resting in bed; naps on and off but easily arousible. VS stable. Patient appears tired and states he is feeling "ok". Discussed possible transfer to [facility] today. Patient expressing some hesitation regarding this transfer. Will have Hospitalist and Isaiah from [facility] discuss [facility] further with patient.
--- NOTE | 2021-07-13 09:34 | NUR ---
Follow-up visit; Patient depressed, Director Of Primary spoke with him briefly about when his ;Yobani would be in and wished him God's blessings.
--- NOTE | 2021-07-13 09:39 | NUR ---
Isaiah here with [facility] and met with patient and spouse to answer all questions. Dr Woodard, [facility], is accepting today. hospital tray service worker arranged [facility] to transport at 11:00. Patient will transfer to [facility] today at 11:00 via [facility] ambulance. Worker met with spouse and discussed post hospital level of care and spouse verbalized understanding and agreement with [facility] transfer. Worker collaborated with patient's nurse regarding the above information. [facility] in [place] today at 11:00 via [facility].
--- NOTE | 2021-07-13 10:00 | NUR ---
Attempted to call report to [facility]. Nurse busy; left callback name and number.
--- NOTE | 2021-07-13 11:42 | NUR ---
Patient transfered from facility via EMS. Alert and oriented and in no distress upon discharge.
--- NOTE | 2021-07-13 12:07 | NUR ---
Report called to MELISSA Fritz at [facility]. All questions and concerns addressed at this time.
== END 2021-07-13 12:09 | DRG 871 ==
LOC: COL.ER 11:33 → ICU 13:50
PROVIDERS: Family Medicine; Internal Medicine; Internal Medicine Cardiovascular Disease; Internal Medicine Pulmonary Disease; Internal Medicine Sleep Medicine; Physician Assistant; ADMIT Internal Medicine
PROC: 02HV33Z Insertion of Infusion Device into Superior Vena Cava, Percutaneous Approach (ICD-10-PCS; principal; 2021-07-06)
PROC: 5A1945Z Respiratory Ventilation, 24-96 Consecutive Hours (ICD-10-PCS; 2021-07-06)
PROC: 0BH17EZ Insertion of Endotracheal Airway into Trachea, Via Natural or Artificial Opening (ICD-10-PCS; 2021-07-06)
DX: A41.9 Sepsis, unspecified organism (principal); J96.01 Acute respiratory failure with hypoxia; J18.9 Pneumonia, unspecified organism; R65.21 Severe sepsis with septic shock; C85.90 Non-Hodgkin lymphoma, unspecified, unspecified site; I48.20 Chronic atrial fibrillation, unspecified; D84.9 Immunodeficiency, unspecified; I47.2 Ventricular tachycardia; G72.81 Critical illness myopathy; E46 Unspecified protein-calorie malnutrition; I10 Essential (primary) hypertension; E78.5 Hyperlipidemia, unspecified; E11.9 Type 2 diabetes mellitus without complications; D64.9 Anemia, unspecified; M10.9 Gout, unspecified; M19.90 Unspecified osteoarthritis, unspecified site; D69.6 Thrombocytopenia, unspecified; Z20.822 Contact with and (suspected) exposure to COVID-19; Z79.01 Long term (current) use of anticoagulants; Z22.7 Latent tuberculosis; Z68.25 Body mass index [BMI] 25.0-25.9, adult
CPT/HCPCS: 99223-AI; 99232-AI; 99233-AI; 99239; A4314; C1751; J0330; J0348; J0456; J0583; J1160; J1644; J1720; J1815; J1940; J1956; J2250; J2543; J2704; J3010; J3370; J3475; J3480; J7030; J7050; J7060; P9040; P9047; Q9957

== ENCOUNTER → 2023-11-26 | Outpatient (REF) | payer MEDICARE, BC ==
[2023-11-26 15:17] LABS: BAND 1 % (0-10); EOSINOPHIL 1 % (0-4); HYPOCHROMIA 1+; LYMPHOCYTE 10 % (20.0-51.0); NEUTROPHILS 86 % (42.0-75.2); PLATELET ESTIMATE DECREASED (NORMAL)
== END ==
LOC: ZCOL.LAB 14:04
PROVIDERS: Family Medicine
DX: C83.39 Diffuse large B-cell lymphoma, extranodal and solid organ sites (principal)